=== PATIENT | female | born 1990 | race Caucasian/White ===

== ENCOUNTER 2021-03-08 18:31 | Emergency (ER) | payer BC, MEDICAID, OTHER ==
[~2021-03-08] VITALS: Ht 157.5 cm; Wt 54.5 kg
[~2021-03-08 18:31] MED LIST: AMIT50TA PO; CYCL5TAB10 PO; LORA-445 PO; METO-93 PO; NORE-88 PO; ONDA4TAB13 SL
[2021-03-08 18:34] VITALS: BP 110/67
[2021-03-08] MEDS ORDERED: HYDROmorphone 1 MG/ML, 1ML INJ IM ONE (19:00)
[2021-03-08] MEDS ORDERED: ONDANSETRON ODT 4 MG PO ONE (19:00)
[2021-03-08] MEDS ORDERED: ONDANSETRON ODT 4 MG ONE (19:05)
[2021-03-08] MEDS ORDERED: HYDROmorphone 1 MG/ML, 1ML INJ ONE (19:06)
--- NOTE | 2021-03-08 19:11 | NUR ---
pt medicated per mar
== END 2021-03-08 20:15 | disposition home or self-care (01) ==
LOC: ED 20:01
DX: S93.401A Sprain of unspecified ligament of right ankle, initial encounter (principal); S93.402A Sprain of unspecified ligament of left ankle, initial encounter; S93.601A Unspecified sprain of right foot, initial encounter; S93.602A Unspecified sprain of left foot, initial encounter; F17.200 Nicotine dependence, unspecified, uncomplicated; W01.0XXA Fall on same level from slipping, tripping and stumbling without subsequent striking against object, initial encounter; Y93.89 Activity, other specified; Y92.410 Unspecified street and highway as the place of occurrence of the external cause; Y99.8 Other external cause status
CPT/HCPCS: 73610; 73630; 96372; 99284; J1170; Q0162

== ENCOUNTER 2021-07-08 18:22 | Emergency (ER) | payer MEDICAID ==
[~2021-07-08] VITALS: Ht 157.5 cm; Wt 60.8 kg
[2021-07-08 18:49] VITALS: BP 130/82
== END 2021-07-08 20:21 | disposition home or self-care (01) ==
LOC: ED 20:01
DX: J06.9 Acute upper respiratory infection, unspecified (principal); G89.29 Other chronic pain
CPT/HCPCS: 71045; 99283